=== PATIENT | female | born 1960 | race Caucasian/White ===

== ENCOUNTER 2022-05-01 16:15 | Observation (INO) ==
[2022-05-01 17:08] LABS: Basophils # (auto) 0.04 K/uL (0-0.2); Basophils % (auto) 0.5 %; Eosinophils # (auto) 0.12 K/uL (0-0.50); Eosinophils % (auto) 1.5 %; Hematocrit (blood only) 28.2 % (34.1-44.9); Hemoglobin 8.2 g/dl (12.0-16.0); Immature Granulocytes # (auto) 0.02 K/uL (0.00-0.02); Immature Granulocytes % (auto) 0.2 %; Lymphocytes # (auto) 1.55 K/uL (1.2-3.4); Lymphocytes % (auto) 18.9 %; Mean Corpuscular Hemoglobin 22.1 pg (25.0-34.0); Mean Corpuscular Hgb Conc 29.1 g/dL (32.0-36.0); Monocytes # (auto) 0.47 K/uL (0.24-0.82); Monocytes % (auto) 5.7 %; Neutrophils # (auto) 5.99 K/uL (1.4-6.5); Neutrophils % (auto) 73.2 %; Platelet Count 357 K/uL (130-400); RDW Coefficient of Variation 17.4 % (11.5-14.5); RDW Standard Deviation 48.1 fL (36.4-46.3); Red Blood Count 3.71 M/uL (3.93-5.22); White Blood Count 8.19 K/ul (4.8-10.8)
--- NOTE | 2022-05-01 17:17 | XRay Report ---
XR chest 1V portable CLINICAL HISTORY: Anemia - hgb 7.6. Evaluate cardiopulmonary status COMPARISON STUDY: No previous studies for comparison. TECHNIQUE: 1 view of the chest FINDINGS: Single frontal view of the chest demonstrates the cardiomediastinal silhouette to be within normal li mits. There is a decreased inspiratory effort with elevation of the hemidiaphragms and crowding of th e bronchovascular markings at the lung bases and centrally. The lungs are clear of alveolar opacities . There is no evidence for pleural effusion. There is no evidence for vascular congestion. There is n o acute osseous pathology. IMPRESSION: 1. There is a decreased inspiratory effort with otherwise no acute chest disease. ACT 112: Negative or not required by law. Electronically signed by: Mitul Kincaid M.D. 05/01/2022 5:15 PM
[2022-05-01 17:24] LABS: Partial Thromboplastin Ratio 0.9; Partial Thromboplastin Time 24.7 Seconds (21.0-31.0); Prothrombin Time 10.3 Seconds (9.0-12.0)
[2022-05-01 17:33] LABS: Troponin I High Sensitivity 6.2 pg/ml (0-14)
[2022-05-01 17:39] LABS: Alanine Aminotransferase 16 U/L (7-52); Albumin Globulin Ratio 1.5 (0.9-2); Albumin Level 4.2 gm/dl (3.4-5.0); Alkaline Phosphatase 79 U/L (34-104); Anion Gap 9 (3-11); Aspartate Aminotransferase 11 U/L (13-39); BUN Creatinine Ratio 17.3 (10-20); Bilirubin,Total 0.3 mg/dl (0.2-1.0); Blood Urea Nitrogen 18 mg/dl (6-23); Calcium 9.4 mg/dl (8.5-10.1); Carbon Dioxide 24 mmol/L (21-32); Chloride 104 mmol/L (98-107); Est GFR (African American) 66.2 ml/min; Est GFR (Non-African American) 57.1 ml/min; Globulin 2.8 gm/dl (2.5-4.0); Glucose 90 mg/dl (70-99(Fasting)); Lipase 64 U/L (11-82); Potassium 3.8 mmol/L (3.5-5.1); Sodium 137 mmol/L (136-145)
[2022-05-01] MEDS ORDERED: PANTOprazole 40 MG in SYRINGE 0 ML IV ONE (17:45)
[2022-05-01] MEDS ORDERED: FAMOTIDINE 20MG IV PUSH 20 MG/5 ML SYR IV STA (17:45)
--- NOTE | 2022-05-01 18:01 | Emergency Department Note ---
Impression & Plan Acute GI bleeding, Anemia ED Provider Note NAME: KALEB LINDSEY AGE: 61 SEX: F : 1960 ARRIVES VIA: Walk-In INFORMANT: Patient, ED PROVIDER(S): Omid Cage DO CHIEF COMPLAINT: Anemia HPI: The patient is a 61-year-old female who presented to the emergency department for an evaluation of generalized weakness. Currently the patient is a patient at the [facility] for inpatient psychiatric treatment. She has had significant psychiatric problems as well as suicidal ideation because of financial issues recently. She states she has a history of colon cancer. She notices no black or bloody bowels. She started having generalized weakness. A repeat of her laboratory studies did show that her hemoglobin is slowly been thomas pping since her admission to the [facility]. She was sent to the emergency department for further evaluation. She denies having any chest pain or difficulty breathing. ROS: See above HPI for pertinent positives & negatives. A total of 10 systems reviewed and were otherwise negative. PAST MEDICAL HISTORY: See Below PAST SURGICAL HISTORY: See Below FAMILY HISTORY: See Below SOCIAL HISTORY: See Below HOME MEDICATIONS: See Below ALLERGIES: See Below VITALS: See Below PHYSICAL EXAMINATION: GENERAL: Patient is awake alert in no acute distress patient is resting comfortably and showing no signs of anxiety EYES: The conjunctivae are clear. The pupils are round and reactive. EARS, NOSE, MOUTH AND THROAT: The nose is without any evidence of any deformity. Mucous membranes are moist. Tongue is midline. NECK: The neck is nontender and supple. RESPIRATORY: Normal respiratory effort is noted there is no evidence of wheezing rhonchi or rales CARDIOVASCULAR: Regular rate and rhythm noted there no murmurs rubs or gallops normal S1 normal S2. GASTROINTESTINAL: The abdomen is soft. Abdomen is nontender. Rectal exam revealed brown stool which was heme positive. MUSCULOSKELETAL/EXTREMITIES: There is no evidence of gross deformity full range of motion is noted in the hips and shoulders. SKIN: There is no obvious evidence of any rash. There are no petechiae, pallor or cyanosis noted. NEUROLOGIC: Patient is awake alert and oriented x3 MEDICAL DECISION MAKING: The patient is a 61-year-old female who presented to the emergency department from the [facility]. She is currently being treated for inpatient mental health issues. She was noted to have anemia when she presented initially for medical clearance. Her anemia had worsened while she was at the [facility] and she was sent to the emergency department for further evaluation. I discussed patient's laboratory and radiographic studies with her. She was found to have heme positive stool on physical exam. Given her current situation at the [facility] I do feel the patient may be a better candidate for inpatient management at our facility. She was treated with Protonix. I discussed her case with the on-call [facility] hospitalist. They have agreed to evaluate the patient in the emergency department for further management and disposition. Triage Nursing notes reviewed. Prior medical records reviewed Vital Signs: reviewed and remarkable for hypertension. Differential diagnosis: Infection, dehydration, metabolic abnormality, hypo/hyperglycemia, electrolyte disturbance, anemia, hypoxia, cardiac sources, intracerebral event, toxicologic, neurologic, as well as other pathologies. ER treatment provided: See below Diagnostics interpreted by me: ECG: EKG was obtained in the emergency department. My interpretation is normal sinus rhythm at 99 bpm. There is no ectopy. There is no acute ST segment abnormalities noted. This was compared to a tracing from April 24, 2022. No changes were noted. Cardiac Monitoring: An order was placed for continuous cardiac monitoring. The monitor shows a rate of 9 bpm with sinus rhythm. Laboratory studies: As stated above and show below. Imaging studies: See below Consultation(s): Discussed this case with Dr. Johnson Past Med/Surg History Medical History (Updated 05/01/22 @ 22:50 by Omid Cage DO) Anxiety Colon cancer Suicidal thoughts Surgical History (Updated 05/01/22 @ 19:05 by Isaias Baker DO) History of colon resection Social History Smoking Status: Never smoker Preferred Language: Panamanian Feels Safe at Home: Yes Allergies Allergies Allergy/AdvReac Type Severity Reaction Status Date / Time No Known Allergies Allergy Verified 05/01/22 19:20 Home Meds Home Medications Medication Instructions Recorded Confirmed acetaminophen 325 mg tablet 650 mg PO Q4H PRN Pain 05/01/22 05/01/22 (Tylenol) clonazepam 0.5 mg tablet 0.5 mg PO BID 05/01/22 05/01/22 clonazepam 0.5 mg tablet 0.5 mg PO Q4H PRN Anxiety 05/01/22 05/01/22 trazodone 100 mg tablet 100 mg PO HS 05/01/22 05/01/22 venlafaxine 150 mg 150 mg PO BID 05/01/22 05/01/22 capsule,extended release 24 hr (Effexor XR) Results & Data (ED) Vital Signs Vital Signs - 24 hr 05/01/22 16:25 05/01/22 17:03 05/01/22 17:30 Temperature 36.6 C Temperature Source Temporal Artery Scan Pulse Rate 102 H Pulse Rate [Finger] 99 H Pulse Rhythm [Finger] Regular Pulse Strength [Finger] Normal Respiratory Rate 16 16 Respiratory Effort / Characteristics Non-Labored Spontaneous Non-Labored Respiratory Depth Normal Normal Respiratory Pattern Regular Regular Blood Pressure 160/92 H Blood Pressure [Right Arm] 153/104 H Blood Pressure Mean 114 Blood Pressure Mean [Right Arm] 120 Blood Pressure Position Sitting Pulse Oximetry 97 100 Oxygen Delivery Method Room Air Room Air Sepsis Recent Fever Within 48 Hours No Sepsis New/Unexplained Change in Mental Status No Sepsis Action Taken by Nursing No Action Required Home Medications Current Medication List: was personally reviewed by me Laboratory Data Attestation: I reviewed the patient's lab results. Result diagrams: 05/01/22 19:54 05/01/22 17:00 Lab Results 05/01/22 05/01/22 05/01/22 Range/Units 16:53 17:00 17:00 WBC 8.19 (4.8-10.8) K/ul RBC 3.71 L (3.93-5.22) M/uL Hgb 8.2 L (12.0-16.0) g/dl Hct 28.2 L (34.1-44.9) % MCV 76.0 L (80.0-100.0) fL MCH 22.1 L (25.0-34.0) pg MCHC 29.1 L (32.0-36.0) g/dL RDW Std Deviation 48.1 H (36.4-46.3) fL RDW Coeff of Arabella 17.4 H (11.5-14.5) % Plt Count 357 (130-400) K/uL MPV 9.0 L (9.4-12.3) fL Immature Gran % (Auto) 0.2 % Neut % (Auto) 73.2 % Lymph % (Auto) 18.9 % [place] % (Auto) 5.7 % Eos % (Auto) 1.5 % Baso % (Auto) 0.5 % Neut # (Auto) 5.99 (1.4-6.5) K/uL Lymph # (Auto) 1.55 (1.2-3.4) K/uL [place] # (Auto) 0.47 (0.24-0.82) K/uL Eos # (Auto) 0.12 (0-0.50) K/uL Baso # (Auto) 0.04 (0-0.2) K/uL Immature Gran # (Auto) 0.02 (0.00-0.02) K/uL PT 10.3 (9.0-12.0) Seconds INR 1.0 (0.9-1.1) APTT 24.7 (21.0-31.0) Seconds PTT Ratio 0.9 Sodium (136-145) mmol/L Potassium (3.5-5.1) mmol/L Chloride (98-107) mmol/L Carbon Dioxide (21-32) mmol/L Anion Gap (3-11) BUN (6-23) mg/dl Creatinine (0.6-1.2) mg/dl Est Cr Clr Drug Dosing Est GFR ( Amer) ml/min Est GFR (Non-Af Amer) ml/min BUN/Creatinine Ratio (10-20) Glucose (70-99(Fasting)) mg/dl Calcium (8.5-10.1) mg/dl Total Bilirubin (0.2-1.0) mg/dl AST (13-39) U/L ALT (7-52) U/L Alkaline Phosphatase (34-104) U/L Troponin I High Sens (0-14) pg/ml Total Protein (6.0-8.3) gm/dl Albumin (3.4-5.0) gm/dl Globulin (2.5-4.0) gm/dl Albumin/Globulin Ratio (0.9-2) Lipase (11-82) U/L SARS-CoV-2, RNA, NAAT (NEGATIVE) Blood Type O Positive Antibody Screen NEGATIVE 05/01/22 05/01/22 Range/Units 17:00 18:25 WBC (4.8-10.8) K/ul RBC (3.93-5.22) M/uL Hgb (12.0-16.0) g/dl Hct (34.1-44.9) % MCV (80.0-100.0) fL MCH (25.0-34.0) pg MCHC (32.0-36.0) g/dL RDW Std Deviation (36.4-46.3) fL RDW Coeff of Arabella (11.5-14.5) % Plt Count (130-400) K/uL MPV (9.4-12.3) fL Immature Gran % (Auto) % Neut % (Auto) % Lymph % (Auto) % [place] % (Auto) % Eos % (Auto) % Baso % (Auto) % Neut # (Auto) (1.4-6.5) K/uL Lymph # (Auto) (1.2-3.4) K/uL [place] # (Auto) (0.24-0.82) K/uL Eos # (Auto) (0-0.50) K/uL Baso # (Auto) (0-0.2) K/uL Immature Gran # (Auto) (0.00-0.02) K/uL PT (9.0-12.0) Seconds INR (0.9-1.1) APTT (21.0-31.0) Seconds PTT Ratio Sodium 137 (136-145) mmol/L Potassium 3.8 (3.5-5.1) mmol/L Chloride 104 (98-107) mmol/L Carbon Dioxide 24 (21-32) mmol/L Anion Gap 9 (3-11) BUN 18 (6-23) mg/dl Creatinine 1.04 (0.6-1.2) mg/dl Est Cr Clr Drug Dosing Not Reportable Est GFR ( Amer) 66.2 ml/min Est GFR (Non-Af Amer) 57.1 ml/min BUN/Creatinine Ratio 17.3 (10-20) Glucose 90 (70-99(Fasting)) mg/dl Calcium 9.4 (8.5-10.1) mg/dl Total Bilirubin 0.3 (0.2-1.0) mg/dl AST 11 L (13-39) U/L ALT 16 (7-52) U/L Alkaline Phosphatase 79 (34-104) U/L Troponin I High Sens 6.2 (0-14) pg/ml Total Protein 7.0 (6.0-8.3) gm/dl Albumin 4.2 (3.4-5.0) gm/dl Globulin 2.8 (2.5-4.0) gm/dl Albumin/Globulin Ratio 1.5 (0.9-2) Lipase 64 (11-82) U/L SARS-CoV-2, RNA, NAAT NEGATIVE (NEGATIVE) Blood Type Antibody Screen Administered Medications Clonazepam (Clonazepam 0.5 Mg Tab) 0.5 mg PO BID IRWIN Stop: 05/31/22 20:59 Last Admin: 05/01/22 20:55 Dose: 0.5 mg Documented By: HECTOR Trazodone HCl (Trazodone Hcl 100 Mg Tab) 100 mg PO HS IRWIN Stop: 05/31/22 20:59 Last Admin: 05/01/22 20:54 Dose: 100 mg Documented By: HECTOR Discontinued Medications Pantoprazole Sodium 40 mg/ (Syringe) 10 mls @ 5 mls/min IV NOW ONE Stop: 05/01/22 17:46 Last Admin: 05/01/22 18:22 Dose: 5 mls/min Documented By: RAFFI Famotidine (Pepcid 20mg Iv Push) 20 mg in 5 mls @ 2.5 mls/min IV NOW STA Stop: 05/01/22 17:46 Last Admin: 05/01/22 18:22 Dose: 2.5 mls/min Documented By: RAFFI Imaging Data Radiologist's Impression: Chest X-Ray 05/01/22 16:25 XR chest 1V portable CLINICAL HISTORY: Anemia - hgb 7.6. Evaluate cardiopulmonary status COMPARISON STUDY: No previous studies for comparison. TECHNIQUE: 1 view of the chest FINDINGS: Single frontal view of the chest demonstrates the cardiomediastinal silhouette to be within normal limits. There is a decreased inspiratory effort with elevation of the hemidiaphragms and crowding of the bronchovascular markings at the lung bases and centrally. The lungs are clear of alveolar opacities. There is no evidence for pleural effusion. There is no evidence for vascular congestion. There is no acute osseous pathology. IMPRESSION: 1. There is a decreased inspiratory effort with otherwise no acute chest disease. ACT 112: Negative or not required by law. Electronically signed by: Mitul Kincaid M.D. 05/01/2022 5:15 PM Discharge Plan Visit Data Chief Complaint: Testing Request Stated Complaint: REQUESTING TESTING ED Provider: Omid Cage Discharge Problem: Acute GI bleeding, Anemia Patient Disposition: Being Evaluated by Hospitalist
--- NOTE | 2022-05-01 19:15 | History & Physical Report ---
Date of Service May 01, 2022 Assessment & Plan (1) Low hemoglobin: (2) Suicidal thoughts: (3) History of colon resection: (4) History of colon cancer: (5) History of suicide attempt: (6) Anxiety: Plan #Low hemoglobin (Anemia vs GI bleed) #H/o colon cancer w/ colon resection -Patient is hemodynamic stable at this time. EKG showed NSR -CXR showed decreased inspiratory effort w/ no acute chest disease. -Patient's hemoglobin was currently 8.2. 9.3 a week ago. -PT INR was normal, CMP was normal -GI bleed is unlikely in this patient but will continue to trend. -H/H Q8H, Fe panel ordered and pending, patient is typed and screened, trend BMP -Fecal occult blood POC pending. -GI consulted for anemia with h/o colon cancer #Suicidal thoughts #H/O Suicide attempt #Depression -Patient had a suicide attempt one week ago -She is currently in patient at the [facility]. -Currently she denies any SI -Continue Effexor 150mg BID, trazodone 100mg HS #Anxiety -Continue Clonazepam 0.5mg BID, and prn Q4 for anxiety. Code status: full code DVT ppx: None d/t possible GI bleed Consults: GI Diet: clear liquid pending possibly colonoscopy Case management: Following Dispo: med/surg Thank you for allowing me to participate in the care of your patient. -Dr. Isaias Baker PGY1 History of Present Illness Primary Care Provider: Martin Almaguer DO Patient is a 61 y/o female who presents to the ED from the [facility] for evaluation of a low hemoglobin on labs (reportedly 7.6). She was seen a week ago in the ED with significant psychiatric problems with suicidal ideation. She was then sent to the [facility] for inpatient care. She states that she is doing better psychiatrically since being at the [facility] and currently has no SI. She states that overall she feels well and that she has not noticed any changes in bowel movement or any black and red in her stool. She denies any SOB or CP. Denies being on any blood thinners. Patient has a PMHx of colon cancer approximately 3 years ago with colon resection. She follows with Dr. Dover in [place]. She believes that she is due to have a colonoscopy. In the ED she was given Protonix and Pepcid. Labs showed a hemoglobin of 8.2 (9.3 on 04/24/2022). She has been type and screened. She is admitted for GI consult for anemia with hx of colon cancer. Allergies Allergy/AdvReac Type Severity Reaction Status Date / Time No Known Allergies Allergy Verified 05/01/22 19:20 Home Medications Medication Instructions Recorded Confirmed Type acetaminophen 325 mg tablet 650 mg PO Q4H PRN Pain 05/01/22 05/01/22 History (Tylenol) clonazepam 0.5 mg tablet 0.5 mg PO BID 05/01/22 05/01/22 History clonazepam 0.5 mg tablet 0.5 mg PO Q4H PRN Anxiety 05/01/22 05/01/22 History trazodone 100 mg tablet 100 mg PO HS 05/01/22 05/01/22 History venlafaxine 150 mg 150 mg PO BID 05/01/22 05/01/22 History capsule,extended release 24 hr (Effexor XR) Past Med/Surg History Medical History (Updated 05/01/22 @ 19:33 by Isaias Baker DO) Anxiety Colon cancer Suicidal thoughts Surgical History (Updated 05/01/22 @ 19:05 by Isaias Baker DO) History of colon resection Social History Smoking Status: Never smoker Preferred Language: Faroese Feels Safe at Home: Yes Review of Systems Constitutional: no fever, no chills, no fatigue and no anorexia Eyes: as per Subjective / HPI Ear, Nose, Mouth, Throat: as per Subjective / HPI Respiratory: no cough, no dyspnea and no hemoptysis Cardiovascular: no chest pain, no palpitations and no lightheadedness Gastrointestinal: no abdominal pain, no nausea, no vomiting, no coffee ground emesis, no hematemesis, no change in bowel habits, no change in stools, no constipation, no fecal incontinence and no blood in stools Genitourinary: no dysuria, no urinary frequency, no urinary urgency and no hematuria Musculoskeletal: no back pain and no swelling Neurologic: as per Subjective / HPI Psychiatric: no suicidal ideation and no homicidal ideation Endocrine: as per Subjective / HPI Hematologic / Lymphatic: as per Subjective / HPI Allergy / Immunological: as per Subjective / HPI Physical Exam Constitutional: WD/WN, vitals as above Eyes: PERRL, conjunctivae normal, anicteric sclerae ENMT: external ear and nose normal, oropharynx normal Respiratory: normal respiratory effort, lungs clear to auscultation Cardiovascular: RRR, no murmur, no edema Gastrointestinal (Abdomen): normal bowel sounds, soft, nontender, no hepatosplenomegaly Musculoskeletal: no cyanosis or clubbing, extremities motor strength 5/5 Skin: no rashes, warm and dry Psychiatric: A+Ox3, euthymic affect Suicidal Thoughts: denies suicidal thoughts and denies suicidal intent Homicidal Thoughts: denies homicidal thoughts Results & Data Results & Data ([facility]) Vital Signs (Past 12 Hours) Vital Signs Temp Pulse Pulse Resp BP BP Pulse Ox 05/01/22 17:30 99 H 16 153/104 H 100 05/01/22 17:03 05/01/22 16:25 36.6 C 102 H 16 160/92 H 97 O2 Del Method 05/01/22 17:30 05/01/22 17:03 Room Air 05/01/22 16:25 Room Air Laboratory Results Abnormal lab results 05/01/22 05/01/22 Range/Units 17:00 17:00 RBC 3.71 L (3.93-5.22) M/uL Hgb 8.2 L (12.0-16.0) g/dl Hct 28.2 L (34.1-44.9) % MCV 76.0 L (80.0-100.0) fL MCH 22.1 L (25.0-34.0) pg MCHC 29.1 L (32.0-36.0) g/dL RDW Std Deviation 48.1 H (36.4-46.3) fL RDW Coeff of Arabella 17.4 H (11.5-14.5) % MPV 9.0 L (9.4-12.3) fL AST 11 L (13-39) U/L Diagnostic Findings Chest X-Ray 05/01/22 16:25 XR chest 1V portable CLINICAL HISTORY: Anemia - hgb 7.6. Evaluate cardiopulmonary status COMPARISON STUDY: No previous studies for comparison. TECHNIQUE: 1 view of the chest FINDINGS: Single frontal view of the chest demonstrates the cardiomediastinal silhouette to be within normal limits. There is a decreased inspiratory effort with elevation of the hemidiaphragms and crowding of the bronchovascular markings at the lung bases and centrally. The lungs are clear of alveolar opacities. There is no evidence for pleural effusion. There is no evidence for vascular congestion. There is no acute osseous pathology. IMPRESSION: 1. There is a decreased inspiratory effort with otherwise no acute chest disease. ACT 112: Negative or not required by law. Electronically signed by: Mitul Kincaid M.D. 05/01/2022 5:15 PM Medications Administered Home Medications acetaminophen 325 mg tablet (Tylenol) 650 mg PO Q4H PRN Pain 05/01/22 [History Confirmed 05/01/22] clonazepam 0.5 mg tablet 0.5 mg PO BID 05/01/22 [History Confirmed 05/01/22] clonazepam 0.5 mg tablet 0.5 mg PO Q4H PRN Anxiety 05/01/22 [History Confirmed 05/01/22] trazodone 100 mg tablet 100 mg PO HS 05/01/22 [History Confirmed 05/01/22] venlafaxine 150 mg capsule,extended release 24 hr (Effexor XR) 150 mg PO BID 05/01/22 [History Confirmed 05/01/22] Code Status & VTE Plan Code Status Full code VTE Prophylaxis Plan VTE Prophylaxis will be ordered: No
[2022-05-01] MEDS ORDERED: ACETAMINOPHEN 325 MG TAB PO PRN (19:42)
[2022-05-01] MEDS ORDERED: clonazePAM 0.5 MG TAB PO PRN (19:42)
[2022-05-01] MEDS ORDERED: ONDANSETRON INJ 2 MG/ML 2 ML VIAL IV PRN (19:42)
[2022-05-01 20:14] LABS: Hematocrit (blood only) 26.8 % (34.1-44.9)
[2022-05-01 20:44] LABS: Iron 14 mcg/dl (35-150); Total Iron Binding Cap Calc 392 mcg/dl (250-450); Transferrin (FE) Percent Satur 4 % (15-50); Unsaturated Iron Binding Cap 378 mcg/dl (155-355)
[2022-05-01] MEDS: clonazePAM 0.5 MG TAB PO SCH (20:55)
[2022-05-01] MEDS ORDERED: traZODone HCL 100 MG TAB PO SCH (21:00)
[2022-05-02 04:36] LABS: Basophils # (auto) 0.04 K/uL (0-0.2); Basophils % (auto) 0.9 %; Eosinophils # (auto) 0.16 K/uL (0-0.50); Eosinophils % (auto) 3.5 %; Hematocrit (blood only) 25.1 % (34.1-44.9); Hemoglobin 7.6 g/dl (12.0-16.0); Immature Granulocytes # (auto) 0.01 K/uL (0.00-0.02); Immature Granulocytes % (auto) 0.2 %; Lymphocytes # (auto) 1.62 K/uL (1.2-3.4); Lymphocytes % (auto) 35.1 %; Mean Corpuscular Hgb Conc 30.3 g/dL (32.0-36.0); Mean Corpuscular Volume 75.8 fL (80.0-100.0); Mean Platelet Volume 9.3 fL (9.4-12.3); Monocytes # (auto) 0.39 K/uL (0.24-0.82); Monocytes % (auto) 8.4 %; Neutrophils % (auto) 51.9 %; Platelet Count 331 K/uL (130-400); RDW Coefficient of Variation 17.3 % (11.5-14.5); RDW Standard Deviation 46.8 fL (36.4-46.3); Red Blood Count 3.31 M/uL (3.93-5.22); White Blood Count 4.62 K/ul (4.8-10.8)
[2022-05-02 05:05] LABS: Anion Gap 6 (3-11); Blood Urea Nitrogen 16 mg/dl (6-23); Calcium 9.2 mg/dl (8.5-10.1); Carbon Dioxide 25 mmol/L (21-32); Chloride 110 mmol/L (98-107); Est GFR (Non-African American) 55.2 ml/min; Glucose 83 mg/dl (70-99(Fasting)); Sodium 141 mmol/L (136-145)
[2022-05-02 05:17] LABS: Hypochromasia Present; Ovalocytes 1+
--- NOTE | 2022-05-02 09:56 | Gastrointestinal Consultation ---
Date of Consultation May 02, 2022 Assessment & Plan (1) Anemia: (2) History of colon cancer: Pt is a 61 yo female seen for iron deficiency anemia. Denies GI//[employer] bleeding signs. Hx of colon ca s/p resection. Due for surveillance colonoscopy this year usually done by Dr. Dover ([facility]). 1 week ago jumped off aric during suicide attempt - seen in ED, hernandez CT wo signs of fracture/hematoma. - Diet as tolerated - Monitor blood ct and transfuse prn - Iron infusion today - Outpt f/u w Dr. Dover for surveillance colonoscopy; recommend outpt EGD eval for anemia as well. - Avoid NSAIDs, ETOH - GI to sign off; pls recall prn Supervising Physician Co-Signing Physician Notes Attg add: I interviewed and examined pt, reviewed chart and labs. Pt of Dr. Dover's seen for iron def anemia. H/o colon cancer, s/p cscpy in 2017. No symptoms of acute GIB. Can trend hgb while inpt. If stable, then would recommend follow with pt's established GI provider for bidirectional endoscopy. Consider iron infusion, iron supplementation, folate supplementation. Will sign off - If hgb falling while inpt, then please reconsult us. Explained plan to pt. She is agreeable. She tells me that she will herself arrange for follow up with Dr. Dover. I asked her to contact us if she is unable to schedule scopes with Dr. Dover's office, which she also agrees to do. History of Present Illness Reason for Consultation: Anemia, history of colon cancer Requesting Physician: Dr. Tyrone Bender Attending Physician: Dr. Noe Henriquez History of Present Illness Patient is a 61-year-old female, seen for anemia today. She was referred to the ED from the [facility] for evaluation of anemia, with outpatient hemoglobin of 7.6. She is currently being treated in the [facility] for psychiatric problems including suicidal ideation, attempt which she currently denies. Patient with history of colon cancer, status postresection. She usually follows with Dr. Dover in [place]. She is not sure when her colon cancer was diagnosed, nor her resection date. Recalls that her last colonoscopy was about 2 years ago, due due to to have a colonoscopy which had been scheduled in Dr. Dover's offi ce. She denies any symptoms including chest pain, shortness of breath, lightheadedness, dizziness, abdominal pain, nausea, vomiting, hematuria, vaginal bleeding, rectal bleeding (s/p hysterectomy) or dark tarry stools. No open/bleeding wounds. Last week during suicide attempt, jumped off aric - seen in ED, hernandez CT wo signs of fracture/hematoma. She denies any uses of tobacco, alcohol, aspirin or NSAIDs. Noted that she was diagnosed with anemia before, but she is not sure of the etiology and currently not on any iron supplements. Labs reviewed in chart by no signs of thrombocytopenia, coagulopathy. H&H stable overnight. Allergies Allergy/AdvReac Type Severity Reaction Status Date / Time No Known Allergies Allergy Verified 05/01/22 19:20 Home Medications Medication Instructions Recorded Confirmed Type acetaminophen 325 mg tablet 650 mg PO Q4H PRN Pain 05/01/22 05/01/22 History (Tylenol) clonazepam 0.5 mg tablet 0.5 mg PO BID 05/01/22 05/01/22 History clonazepam 0.5 mg tablet 0.5 mg PO Q4H PRN Anxiety 05/01/22 05/01/22 History trazodone 100 mg tablet 100 mg PO HS 05/01/22 05/01/22 History venlafaxine 150 mg 150 mg PO BID 05/01/22 05/01/22 History capsule,extended release 24 hr (Effexor XR) ferrous sulfate 325 mg (65 mg 325 mg PO BID #60 tabs 05/02/22 Rx iron) tablet,delayed release Patient History Medical History Anxiety Colon cancer Suicidal thoughts Surgical History History of colon resection Social History Smoking Status: Never smoker Hx Alcohol Use: No Hx Substance Use: No Preferred Language: Yi Communication Ability: Effective Linemarker Required: No Beliefs That Will Affect Care: Muslim Current Living Situation: Spouse Current Living Situation Comment: Currently at the [facility] Feels Safe at Home: Yes Safety Concerns: Feels Safe At This Time Assistive Devices: None Review of Systems Review of Systems: All systems reviewed & are unremarkable except as noted in HPI & below Physical Exam Constitutional: WD/WN, vitals as above well groomed, cooperative and comfortable Eyes: PERRL, conjunctivae normal, anicteric sclerae ENMT: external ear and nose normal, oropharynx normal Respiratory: normal respiratory effort, lungs clear to auscultation Cardiovascular: RRR, no murmur, no edema Gastrointestinal (Abdomen): normal bowel sounds, soft, nontender, no hepatosplenomegaly Skin: no rashes, warm and dry no jaundice Psychiatric: A+Ox3, euthymic affect Lymphatic: no lymphedema Results & Data ([facility]) Vital Signs (Past 12 Hours) Vital Signs Temp Pulse Resp BP Pulse Ox O2 Del Method 05/02/22 09:02 Room Air 05/02/22 08:39 36.9 C 88 18 128/78 97 Room Air 05/02/22 07:11 36.8 C 93 H 20 128/78 98 Room Air 05/02/22 00:00 Room Air 05/02/22 00:51 17 Room Air (1) Anemia Anemia type: unspecified type Qualified Code(s): D64.9 - Anemia, unspecified
[2022-05-02] MEDS ORDERED: IRON SUCROSE 300 MG in SODIUM CHLORIDE 0.9% 250 ML IV ONE (10:00)
[2022-05-02] MEDS: clonazePAM 0.5 MG TAB PO SCH (10:12)
[2022-05-02] MEDS: VENLAFAXINE HCL XR 150 MG CAPXR PO SCH ×2 (10:12→12:55)
[2022-05-02 12:32] LABS: Hemoglobin 7.9 g/dl (12.0-16.0)
--- NOTE | 2022-05-02 13:46 | Discharge Summary ---
Date of Service May 02, 2022 Admission HPI Per Admitting Provider Patient is a 61 y/o female who presents to the ED from the [facility] for evaluation of a low hemoglobin on labs (reportedly 7.6). She was seen a week ago in the ED with significant psychiatric problems with suicidal ideation. She was then sent to the [facility] for inpatient care. She states that she is doing better psychiatrically since being at the [facility] and currently has no SI. She states that overall she feels well and that she has not noticed any changes in bowel movement or any black and red in her stool. She denies any SOB or CP. Denies being on any blood thinners. Patient has a PMHx of colon cancer approximately 3 years ago with colon resection. She follows with Dr. Dover in [place]. She believes that she is due to have a colonoscopy. In the ED she was given Protonix and Pepcid. Labs showed a hemoglobin of 8.2 (9.3 on 04/24/2022). She has been type and screened. She is admitted for GI consult for anemia with hx of colon cancer. Principal Diagnosis Microcytic hypochromic anemia c/w iron deficiency Discharge Exam GENERAL: 61 yo Well-developed, well-nourished WF. NAD. LUNGS: Clear to auscultation bilaterally. No W/R/R. CARDIOVASCULAR: Regular rate and rhythm. ABDOMEN: Soft, non-tender and non-distended. BS normoactive x 4 quad. EXTREMITIES: No edema. Non-tender. Peripheral pulses +2/4. NEUROLOGIC: A&O x3. Nonfocal PSYCHIATRIC: Cooperative. Appropriate mood and affect. SKIN: Warm, dry, intact. No rashes or lesions. Discharge Data Allergies Allergy/AdvReac Type Severity Reaction Status Date / Time No Known Allergies Allergy Verified 05/01/22 19:20 Consultations 05/01/22 18:36 ED Decision to Admit Stat 05/01/22 19:42 Consult Gastroenterology Routine Ordered Studies 05/02/22 12:00 05/02/22 04:03 Chest X-Ray 05/01/22 16:25 XR chest 1V portable CLINICAL HISTORY: Anemia - hgb 7.6. Evaluate cardiopulmonary status COMPARISON STUDY: No previous studies for comparison. TECHNIQUE: 1 view of the chest FINDINGS: Single frontal view of the chest demonstrates the cardiomediastinal silhouette to be within normal limits. There is a decreased inspiratory effort with elevation of the hemidiaphragms and crowding of the bronchovascular markings at the lung bases and centrally. The lungs are clear of alveolar opacities. There is no evidence for pleural effusion. There is no evidence for vascular congestion. There is no acute osseous pathology. IMPRESSION: 1. There is a decreased inspiratory effort with otherwise no acute chest disease. ACT 112: Negative or not required by law. Electronically signed by: Mitul Kincaid M.D. 05/01/2022 5:15 PM Hospital Course (1) Anemia: - microcytic hypochromic w/ low serum iron of 14 c/w SHMUEL - admitted to hospital d/t anemia and possible anticipation of transfusion - typed and screened - serial H&Hs drawn - hgb remains stable/unchanged and hemodynamics remain stable - No BRB or melena per rectum - Appreciate GI input, seen by team w/o plans for scope - advised f/u with established director report Dr. Dover for o/p EGD and colo - given a dose of Venofer 300mg IV x1 - start FeSO4 supplementation - rx sent to pharmacy - can consider transfusion if pt has acute drop or becomes symptomatic (2) Anxiety: - continue current o/p meds (3) History of colon cancer: - w/ h/o colon resection - follows with GI in [place] for screening colonoscopies (for which she is due) (4) History of suicide attempt: - Return to [facility] for psychiatric care, denies SI or HI at this time Plan Patient is medically and hemodynamically stable for discharge back to the [facility] to continue her inpatient psychiatric care. Plan has been d/w Dr. Bender who is in agreement. Total Time Total Time Spent Total Time Spent (In Minutes): <30 minutes Discharge Plan Discharge Items Patient Disposition: Transfer [facility] Reason For Visit: ANEMIA Discharge Diagnosis: anemia Activity: Resume your previous activity Non-emergency contact: Primary Care Provider and Manager [employer] Call non-emergency contact if: you have any medication questions Follow-up/Referrals: Martin Almaguer DO [Primary Care Provider] - Diet: Regular Addtl Attending Provider Instructions: You were hospitalized due to anemia or low blood counts. It is possible that you are occasionally having some blood pass through your gastrointestinal tract but at this time you have no signs concerning for active bleeding. You have been seen by the gastroenterology group in the hospital who felt you could follow up with your established director report, Dr. Dover, and have your scheduled follow up colonoscopy and an upper endoscopy due to the anemia. You were found to have low iron. You were given an iron infusion during your stay. You will be started on iron supplementation, a prescription has been sent to your pharmacy. Please note, iron supplements can/will change the color of your stool to a dark or black color. Follow up as scheduled with your director report as well as your primary care provider. Would advise PCP follow up within 1 week or so of discharge. If you should start to pass bright red or dark red blood from your rectum, experience shortness of breath, lightheadedness or dizziness, or chest pain, you should be evaluated promptly by a medical provider. If you have any questions following your discharge, please call the nonemergency number listed on your discharge paperwork. Pending Studies at Discharge: No Stand-Alone Forms: My [facility] Medications and DC Order Prescriptions: New ferrous sulfate 325 mg (65 mg iron) tablet,delayed release (DR/EC) 325 mg PO BID Qty: 60 0RF Continued acetaminophen [Tylenol] 325 mg Tablet 650 mg PO Q4H MDD 6 TABS/24 HOURS PRN (Reason: Pain) clonazepam 0.5 mg Tablet 0.5 mg PO BID clonazepam 0.5 mg Tablet 0.5 mg PO Q4H MDD 2 DOSES/24 HOURS PRN (Reason: Anxiety) venlafaxine [Effexor XR] 150 mg Capsule,Extended Release 24hr 150 mg PO BID Rx Instructions: TAKES ON 0900 & 1300 trazodone 100 mg Tablet 100 mg PO HS Discharge Orders: Discharge Order (Routine); Ordered 05/02/22 Ordered By: Laxmi Mitchell/Other Patient Handouts: Anemia Admission Data Admit Date/Time: 05/01/22 18:46 Attending Provider: Tyrone Bender Admit Provider: Nabil Johnson Primary Care Provider: Martin Almaguer Other Providers: Nabil Johnson ; Radhika Edward Coding Level of Care Code 73452 OBS Care - Discharge Diagnoses Anemia D64.9 Anemia type: unspecified type Anxiety F41.9 History of colon cancer Z85.038 History of suicide attempt Z91.51
--- NOTE | 2022-05-03 06:00 | Electrocardiogram Report ---
Test Reason : Blood Pressure : / mmHG Vent. Rate : 099 BPM Atrial Rate : 099 BPM P-R Int : 170 ms QRS Dur : 082 ms QT Int : 346 ms P-R-T Axes : 048 -10 045 degrees QTc Int : 444 ms Normal sinus rhythm Normal ECG When compared with ECG of 24-APR-2022 00:48, No significant change was found Confirmed by Raymond Badillo ([id number]) on 05/03/2022 5:59:47 AM Referred By: REFERRED SELF Confirmed By:Raymond Badillo
== END 2022-05-02 20:00 ==
LOC: ED 16:15 → EDINP 16:15 → SUATTDRO 18:46 → EDINP 05-02